=== PATIENT | female | born 1980 | race Hispanic/Latino ===

== ENCOUNTER 2018-08-03 10:03 | Day surgery (SDC) | payer MEDICAID, OTHER ==
[2018-08-03] MEDS ORDERED: NACL 0.9% 1000 ML 1,000 ML IV SCH (11:00)
[2018-08-03] MEDS ORDERED: DIPRIVAN 10 MG/ML IV ONE ×2 (11:29)
--- NOTE | 2018-08-03 11:29 | Anesthesia Consultation ---
Anesthesia Consult and Med Hx Date of service: 08/03/18 - Airway Anesthetic Teeth Evaluation: Good ROM Head & Neck: Adequate Mental/Hyoid Distance: Adequate Mallampati Class: Class II Intubation Access Assessment: Probably Good - Pre-Operative Health Status ASA Pre-Surgery Classification: ASA2 Proposed Anesthetic Plan: MAC - Pulmonary Hx Asthma: Yes - Cardiovascular System Hx Heart Murmur: Yes - Central Nervous System Hx Psychiatric Problems: Yes (anxiety) - Other Systems Hx Obesity: Yes (BMI 33.5)
--- NOTE | 2018-08-03 11:30 | Anesthesia Day of Surgery ---
Anesthesia Day of Surgery - Day of Surgery Patient Examined: Yes Patient H&P Reviewed: Yes Patient is NPO: Yes
--- NOTE | 2018-08-03 12:08 | Procedure Note ---
Date of procedure: 08/03/18 Pre-op diagnosis: Abdominal Pain/ Hematochezia Post-op diagnosis: other (R/O Microscopic colitis/ R/o Ileitis/ Hematochezia secondary to Minor Internal Hemorrhoids) Procedure: Colonoscopy with Biopsy Anesthesia: NAVI Surgeon: MARIA E CADET Estimated blood loss: minimal Pathology: list Specimen disposition: to lab Condition: stable Disposition: same day (Avoid aspirin and NSAID for 5 dys. Follow up in 1 to 2 weeks ([phone]). Treat with prn dose Bentyl and anti hemorrhoidal m edication.)
[2018-08-03 12:12] VITALS: BP 119/77
--- NOTE | 2018-08-03 12:23 | Operative Report ---
PROCEDURE PERFORMED: Colonoscopy. INDICATIONS: A 37-year-old slightly obese white female who has been having abdominal pain and also had noticed some hematochezia. Colonoscopy was done to assess for the problem. DESCRIPTION OF PROCEDURE: Procedure was done after getting informed consent with MAC anesthesia. Initial rectal exam was unremarkable. Instrument was passed through rectum onto the cecum, which was identified by ileocecal valve and appendiceal orifice. Visualization was fair to good. The terminal ileum was intubated and showed normal mucosa. Biopsy was done to rule out for possible ileitis. Cecum, ascending colon, transverse colon, descending colon, and sigmoid likewise showed normal mucosa. There was no endoscopic evidence of colitis, diverticular disease, or polyps. Random biopsies were done to rule out for possible microscopic colitis and the rectum showed minor internal hemorrhoid, which may have contributed to the patient's hematochezia, but was not significant enough for banding. There was minimal bleeding from the biopsy sites. No complications associated with the procedure. ASSESSMENT: Abdominal pain, rule out microscopic colitis, rule out ileitis. Hematochezia secondary to minor internal hemorrhoids, not prominent enough for banding. There was minimal bleeding from the biopsy sites. No complications associated with the procedure. PLAN: Treat the patient with hemorrhoidal medication as well as p.r.n. dose of Bentyl for any abdominal pain and have the patient avoid aspirin and aspirin-related products for the next 5 days and follow up in the office in 1-2 weeks' time. RNTrina was in the room throughout the entirety of the procedure. JOB# [id number] MITRA/MARIA GUADALUPE
[2018-08-03] MEDS ORDERED: NACL 0.9% 1000 ML 1,000 ML ONE (14:27)
== END 2018-08-03 12:33 | disposition home or self-care (01) ==
LOC: GIO 10:03
DX: K52.832 Lymphocytic colitis (principal); K64.8 Other hemorrhoids; E07.9 Disorder of thyroid, unspecified; E16.2 Hypoglycemia, unspecified; J45.909 Unspecified asthma, uncomplicated; E66.9 Obesity, unspecified; Z68.33 Body mass index [BMI] 33.0-33.9, adult; Z79.899 Other long term (current) drug therapy; Z98.890 Other specified postprocedural states; Z98.891 History of uterine scar from previous surgery
CPT/HCPCS: 45380; 81025; 88305; J2704; J7030